=== PATIENT | male | born 1970 | race African-American/Black ===

== ENCOUNTER 2016-07-27 10:05 | Emergency (ER) | payer BC ==
[~2016-07-27] VITALS: Ht 188 cm; Wt 106.6 kg
[2016-07-27 13:24] VITALS: BP 162/91
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
== END 2016-07-27 14:16 | disposition home or self-care (01) ==
LOC: EDBD → ER 10:05
DX: S09.90XA Unspecified injury of head, initial encounter (principal); W01.198A Fall on same level from slipping, tripping and stumbling with subsequent striking against other object, initial encounter; Y93.89 Activity, other specified; Y92.89 Other specified places as the place of occurrence of the external cause; Y99.8 Other external cause status
CPT/HCPCS: 99281

== ENCOUNTER → 2016-07-29 | Outpatient (CLI) | payer BC, OTHER ==
[2016-07-27 13:24] VITALS: BP 162/91
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
== END | disposition home or self-care (01) ==
LOC: EDBD 10:38 → KCIC CT 10:38
PROVIDERS: ATTEND Family Medicine
DX: S09.8XXA Other specified injuries of head, initial encounter (principal); R51 Headache
CPT/HCPCS: 70450